=== PATIENT | female | born 1940 | race Caucasian/White ===

== ENCOUNTER 2018-10-07 19:18 | Inpatient (IN) | payer MEDICARE, OTHER ==
--- NOTE | 2018-10-07 19:29 | ERPHSYRPT ---
- History of Present Illness Time Seen by Provider: 10/07/18 19:29 Historian: patient, family Exam Limitations: no limitations Physician History: 78 y/o obese white female presents with 3 day h/o mild distension and mild right lower quad abd pain. no vomiting or diarrhea. pt has constipation issues and was supposed to see dr. vazquez(general surgery) to schedule a colonoscopy but pt wasnt feeling well and missed the appt. pt has had an appendectomy in the past. pt is wheelchair bound Timing/Duration: day(s) (3), constant Quality: fullness, pressure Abdominal Pain Onset Location: generalized abdomen Pain Radiation: no radiation Severity of Pain-Max: mild Severity of Pain-Current: mild Modifying Factors: Improves With: nothing Associated Symptoms: other (constipqtion) Previous symptoms: same symptoms as today Allergies/Adverse Reactions: No Known Drug Allergies Allergy (Unverified 12/07/14 12:05) Home Medications: Allopurinol 100 mg [Zyloprim 100 mg] 100 mg PO DAILY 12/07/14 [History] Aspirin 81 mg PO DAILY 12/07/14 [History] Canagliflozin [Invokana] 300 mg PO DAILY 12/07/14 [History] Diclofenac Sodium Gel [Voltaren GEL] 100 gm TP DAILY 12/07/14 [History] Ergocalciferol (Vitamin D2) [Vitamin D2] 0 unit PO DAILY 12/07/14 [History] Fenofibrate Nanocrystallized [Fenofibrate] 145 mg PO DAILY 12/07/14 [History] Levothyroxine Sodium 25 Mcg [Synthroid 25 Mcg] 25 mcg PO DAILY 12/07/14 [ History] Losartan Potassium [Cozaar] 50 mg PO QPM 12/07/14 [History] Lovastatin 40 mg PO DAILY 12/07/14 [History] Metoprolol Succinate 25 mg PO BID 12/07/14 [History] Nifedipine [Adalat cc] 60 mg PO QPM 12/07/14 [History] Omeprazole 20 MG [Prilosec 20 mg] 20 mg PO DAILY 12/07/14 [History] Potassium Chloride 10 Meq Tab* [Klor Con 10 MEQ] 20 meq PO DAILY 12/07/14 [ History] Venlafaxine HCl 37.5 mg [Effexor 37.5 mg] 37.5 mg PO DAILY 12/07/14 [ History] - Review of Systems Constitutional: No Symptoms Eyes: No Symptoms Ears, Nose, & Throat: No Symptoms Respiratory: No Symptoms Cardiac: No Symptoms Abdominal/Gastrointestinal: Abdominal Pain, Constipation Genitourinary Symptoms: No Symptoms Musculoskeletal: No Symptoms Skin: No Symptoms Neurological: No Symptoms Psychological: No Symptoms Endocrine: No Symptoms Hematologic/Lymphatic: No Symptoms Immunological/Allergic: No Symptoms All Other Systems: Reviewed and Negative - Past Medical History Neurological History: No Pertinent History ENT History: No Pertinent History Cardiac History: No Pertinent History Respiratory History: No Pertinent History Endocrine Medical History: No Pertinent History Musculoskeletal History: No Pertinent History GI Medical History: No Pertinent History History: No Pertinent History Psycho-Social History: No Pertinent History Female Reproductive Disorders: No Pertinent History - Past Surgical History Neuro Surgical History: No Pertinent History Cardiac: No Pertinent History Respiratory: No Pertinent History Gastrointestinal: No Pertinent History Genitourinary: No Pertinent History Musculoskeletal: No Pertinent History Female Surgical History: No Pertinent History - Nursing Vital Signs Nursing Vital Signs: Initial Vital Signs Pulse Rate 99 H 10/07/18 20:42 Respiratory Rate 22 10/07/18 20:42 O2 Sat by Pulse Oximetry 96 10/07/18 20:42 Pain Scale Pain Intensity 0 - Physical Exam General Appearance: mild distress, alert, anxiety Eye Exam: PERRL/EOMI, eyes nml inspection Ears, Nose, Throat Exam: normal ENT inspection, moist mucous membranes Neck Exam: normal inspection, non-tender, supple, full range of motion Respiratory Exam: normal breath sounds, airway intact, wheezing, No chest tenderness, No respiratory distress Cardiovascular Exam: regular rate/rhythm, normal heart sounds, normal peripheral pulses Gastrointestinal/Abdomen Exam: soft, normal bowel sounds, tenderness, distention (mild), No guarding, No rebound Pelvic Exam: not done Rectal Exam: not done Back Exam: normal inspection, normal range of motion, No CVA tenderness, No vertebral tenderness Extremity Exam: normal inspection, normal range of motion, pelvis stable Neurologic Exam: alert, oriented x 3, cooperative, chair springer II-XII nml as tested, normal mood/affect Skin Exam: normal color, warm, dry Lymphatic Exam: adenopathy SpO2 Interpretation: normal O2 Delivery: Room Air - Course Nursing assessment & vital signs reviewed: Yes Ordered Tests: Active Orders 24 hr Category Date Time Status IV Insertion STAT Care 10/07/18 19:55 Active ABDOMEN AND PELVIS W/0 CONTRAS [CT] Stat Exams 10/07/18 20:23 Taken CHEST 1 VIEW (PORTABLE) Stat Exams 10/07/18 20:37 Taken AMYLASE Stat Lab 10/07/18 20:15 Completed CBC W DIFF Stat Lab 10/07/18 20:15 Completed CMP Stat Lab 10/07/18 20:15 Completed CULTURE,URINE Stat Lab 10/07/18 21:33 Received LIPASE Stat Lab 10/07/18 20:15 Completed Lactic Acid Stat Lab 10/07/18 20:20 Completed Lactic Acid Stat Lab 10/07/18 22:24 Ordered UA W/RFX UR CULTURE Stat Lab 10/07/18 21:33 Completed Peak Expiratory Flow Rate ONCE RT 10/07/18 20:39 Active Respiratory Therapy Assessment DAILY RT 10/07/18 20:39 Active Transfer Order Routine Transfer 10/07/18 Ordered Medication Summary Generic Name Dose Route Start Last Admin Trade Name Freq PRN Reason Stop Dose Admin Sodium Chloride 1,000 mls @ 999 mls/hr 10/07/18 21:52 10/07/18 22:07 Sodium Chloride 0.9% 1000 Ml IV 10/07/18 22:52 999 mls/hr .Q1H1M STA Administration Discontinued Medications Generic Name Dose Route Start Last Admin Trade Name Freq PRN Reason Stop Dose Admin Albuterol Sulfate Confirm 10/07/18 20:36 Proventil 2.5 Mg/3 Ml Neb Administered 10/07/18 20:37 Dose 2.5 mg IH .STK-MED ONE Albuterol Sulfate 2.5 mg 10/07/18 20:38 10/07/18 20:40 Proventil 2.5 Mg/3 Ml Neb IH 10/07/18 20:39 2.5 mg STAT ONE Administration Ceftriaxone Sodium/Dextrose 1 g in 50 mls @ 100 mls/hr 10/07/18 21:52 22:07 Rocephin 1 Gm-D5w 50 Ml Bag IV 10/07/18 22:21 100 mls/hr STAT STA 100 mls/hr Administration Sodium Chloride Confirm 10/07/18 21:59 Sodium Chloride 0.9% 1000 Ml Administered 10/07/18 22:00 Dose 1,000 mls @ ud .ROUTE .STK-MED ONE Ceftriaxone Sodium/Dextrose Confirm 10/07/18 21:59 Rocephin 1 Gm-D5w 50 Ml Bag Administered 10/07/18 22:00 Dose 1 g in 50 mls @ ud IV .STK-MED ONE Lab/Rad Data: Laboratory Result Diagrams 10/07/18 20:15 10/07/18 20:15 Laboratory Results 10/07/18 10/07/18 10/07/18 Range/Units 21:33 20:20 20:15 WBC (4.0-10.5) K/mm3 RBC (4.1-5.4) M/mm3 Hgb (12.0-16.0) gm/dl Hct (35-47) % MCV (78-100) fl MCH (26-32) pg MCHC (32-36) g/dl RDW (11.5-14.0) % Plt Count (150-450) K/mm3 MPV (6-9.5) fl Gran % (36.0-66.0) % Eos # (Auto) (0-0.5) Absolute Lymphs (auto) (1.0-4.6) Absolute Monos (auto) (0.0-1.3) Lymphocytes % (24.0-44.0) % Monocytes % (0.0-12.0) % Eosinophils % (0.00-5.0) % Basophils % (0.0-0.4) % Absolute Granulocytes (1.4-6.9) Basophils # (0-0.4) Sodium 134 L (137-145) mmol/L Potassium 4.7 (3.5-5.1) mmol/L Chloride 97 L (98-107) mmol/L Carbon Dioxide 25 (22-30) mmol/L Anion Gap 16.4 H (5-15) MEQ/L BUN 55 H (7-17) mg/dL Creatinine 2.92 H (0.52-1.04) mg/dL Estimated GFR 16.6 ML/MIN Glucose 107 H (74-106) mg/dL Lactic Acid 2.0 (0.4-2.0) Calcium 9.4 (8.4-10.2) mg/dL Total Bilirubin 1.30 (0.2-1.3) mg/dL AST 67 H (14-36) U/L ALT 39 H (0-35) U/L Alkaline Phosphatase 46 (38-126) U/L Serum Total Protein 7.4 (6.3-8.2) g/dL Albumin 4.0 (3.5-5.0) g/dL Amylase 85 (30-110) U/L Lipase 379 H (23-300) U/L Urine Color ANNELISE (YELLOW) Urine Appearance CLOUDY (CLEAR) Urine pH 5.0 (5-6) Ur Specific [place] 1.020 (1.005-1.025) Urine Protein 30 (Negative) Urine Ketones TRACE (NEGATIVE) Urine Blood NEGATIVE (0-5) Denis/ul Urine Nitrite NEGATIVE (NEGATIVE) Urine Bilirubin SMALL (NEGATIVE) Urine Urobilinogen 4 (0-1) mg/dL Ur Leukocyte Esterase MODERATE (NEGATIVE) Urine WBC (Auto) >100 (0-5) /HPF Urine RBC (Auto) 26-50 (0-2) /HPF U Hyaline Cast (Auto) 11-25 (0-2) /LPF U Epithel Cells (Auto) MODERATE (FEW) /HPF Urine Bacteria (Auto) NONE (NEGATIVE) /HPF Urine Mucus (Auto) MANY (NEGATIVE) /HPF Urine Culture Reflexed YES (NO) Urine Glucose NEGATIVE (NEGATIVE) mg/dL 10/07/18 Range/Units 20:15 WBC 20.9 H (4.0-10.5) K/mm3 RBC 3.81 L (4.1-5.4) M/mm3 Hgb 11.3 L (12.0-16.0) gm/dl Hct 34.4 L (35-47) % MCV 90.3 (78-100) fl MCH 29.6 (26-32) pg MCHC 32.8 (32-36) g/dl RDW 14.4 H (11.5-14.0) % Plt Count 194 (150-450) K/mm3 MPV 11.7 H (6-9.5) fl Gran % 87.9 H (36.0-66.0) % Eos # (Auto) 0.04 (0-0.5) Absolute Lymphs (auto) 1.10 (1.0-4.6) Absolute Monos (auto) 1.33 H (0.0-1.3) Lymphocytes % 5.3 L (24.0-44.0) % Monocytes % 6.4 (0.0-12.0) % Eosinophils % 0.2 (0.00-5.0) % Basophils % 0.2 (0.0-0.4) % Absolute Granulocytes 18.36 H (1.4-6.9) Basophils # 0.04 (0-0.4) Sodium (137-145) mmol/L Potassium (3.5-5.1) mmol/L Chloride (98-107) mmol/L Carbon Dioxide (22-30) mmol/L Anion Gap (5-15) MEQ/L BUN (7-17) mg/dL Creatinine (0.52-1.04) mg/dL Estimated GFR ML/MIN Glucose (74-106) mg/dL Lactic Acid (0.4-2.0) Calcium (8.4-10.2) mg/dL Total Bilirubin (0.2-1.3) mg/dL AST (14-36) U/L ALT (0-35) U/L Alkaline Phosphatase (38-126) U/L Serum Total Protein (6.3-8.2) g/dL Albumin (3.5-5.0) g/dL Amylase (30-110) U/L Lipase (23-300) U/L Urine Color (YELLOW) Urine Appearance (CLEAR) Urine pH (5-6) Ur Specific [place] (1.005-1.025) Urine Protein (Negative) Urine Ketones (NEGATIVE) Urine Blood (0-5) Denis/ul Urine Nitrite (NEGATIVE) Urine Bilirubin (NEGATIVE) Urine Urobilinogen (0-1) mg/dL Ur Leukocyte Esterase (NEGATIVE) Urine WBC (Auto) (0-5) /HPF Urine RBC (Auto) (0-2) /HPF U Hyaline Cast (Auto) (0-2) /LPF U Epithel Cells (Auto) (FEW) /HPF Urine Bacteria (Auto) (NEGATIVE) /HPF Urine Mucus (Auto) (NEGATIVE) /HPF Urine Culture Reflexed (NO) Urine Glucose (NEGATIVE) mg/dL - Progress Progress: improved Progress Note: 10/07/18 22:[address] martinez. i reviewed pt hx, condition, labs and ct scan results with her. she accepts pt for observation Counseled pt/family regarding: lab results, diagnosis, need for follow-up, rad results - Departure Departure Disposition: Observation Clinical Impression: Acute cholecystitis, UTI (urinary tract infection) Condition: Stable Critical Care Time: No Referrals: SABRINA MARTINEZ [Primary Care Provider] -
[2018-10-07 20:25] LABS: BASOPHIL % 0.2 % (0.0-0.4); Basophil (Absolute #) 0.04 (0-0.4); Eosinophil % 0.2 % (0.00-5.0); Eosinophil (Absolute #) 0.04 (0-0.5); Granulocyte Absolute (ANC) 18.36 (1.4-6.9); Granulocytes % 87.9 % (36.0-66.0); Hematocrit 34.4 % (35-47); Hemoglobin 11.3 gm/dl (12.0-16.0); Lymphocytes % 5.3 % (24.0-44.0); Mean Cell Volume 90.3 fl (78-100); Mean Corpuscular Hgb Concent. 32.8 g/dl (32-36); Mean Platelet Volume 11.7 fl (6-9.5); Monocyte (Absolute #) 1.33 (0.0-1.3); Monocytes % 6.4 % (0.0-12.0); Platelet Count 194 K/mm3 (150-450); Red Blood Count 3.81 M/mm3 (4.1-5.4); Red Cell Distribution Width 14.4 % (11.5-14.0); White Blood Count 20.9 K/mm3 (4.0-10.5)
[2018-10-07 20:29] LABS: Mean Corpuscular Hemoglobin 29.6 pg (26-32)
[2018-10-07 20:30] LABS: ANION GAP 16.4 MEQ/L (5-15); BILIRUBIN,TOTAL 1.3 mg/dL (0.2-1.3); Calcium 9.4 mg/dL (8.4-10.2); Creatinine 1 2.92 mg/dL (0.52-1.04); Potassium 4.7 mmol/L (3.5-5.1); Total Protein 7.4 g/dL (6.3-8.2)
[2018-10-07] MEDS ORDERED: PROVENTIL 2.5 MG/3 ML NEB IH ONE ×2 (20:36→20:38)
[2018-10-07 21:41] LABS: Appearance CLOUDY (CLEAR); Bilirubin SMALL (NEGATIVE); Blood NEGATIVE Ery/ul (0-5); Epithelial Cells MODERATE /HPF (FEW); Glucose NEGATIVE (NEGATIVE); Ketones TRACE (NEGATIVE); Leukocyte Esterase MODERATE (NEGATIVE); Mucus MANY /HPF (NEGATIVE); Nitrite NEGATIVE (NEGATIVE); Protein,Urine Dip 30 (Negative); RBC 26-50 /HPF (0-2); Urobilinogen 4 mg/dL (0-1); WBC >100 /HPF (0-5)
[2018-10-07] MEDS ORDERED: ROCEPHIN 1 Gm-D5w 50 ml Bag** 1 G/50 ML IVPB IV STA (21:52)
[2018-10-07] MEDS ORDERED: Sodium Chloride 0.9% 1000 ML 1,000 ML IV STA (21:52)
[2018-10-07] MEDS ORDERED: ROCEPHIN 1 Gm-D5w 50 ml Bag** 1 G/50 ML IVPB IV ONE (21:59)
[2018-10-07] MEDS ORDERED: Sodium Chloride 0.9% 1000 ML 1,000 ML ONE (21:59)
[2018-10-08] MEDS ORDERED: TYLENOL 325 MG PO PRN (00:23)
[2018-10-08] MEDS ORDERED: DILAUDID 2 MG INJECTION IV PRN (00:23)
[2018-10-08] MEDS ORDERED: Zofran 4 MG/2 ML VIAL IV PRN (00:23)
[2018-10-08] MEDS: Sodium Chloride 0.9% 1000 ML 1,000 ML IV SCH (00:43)
[2018-10-08 06:09] LABS: BASOPHIL % 0.1 % (0.0-0.4); Basophil (Absolute #) 0.02 (0-0.4); Eosinophil % 0.2 % (0.00-5.0); Eosinophil (Absolute #) 0.03 (0-0.5); Hematocrit 32.7 % (35-47); Hemoglobin 10.9 gm/dl (12.0-16.0); Lymphocyte (Absolute #) 0.84 (1.0-4.6); Lymphocytes % 5.6 % (24.0-44.0); Mean Cell Volume 90.6 fl (78-100); Mean Corpuscular Hgb Concent. 33.3 g/dl (32-36); Mean Platelet Volume 12.2 fl (6-9.5); Monocyte (Absolute #) 1.07 (0.0-1.3); Monocytes % 7.1 % (0.0-12.0); Platelet Count 154 K/mm3 (150-450); Red Blood Count 3.61 M/mm3 (4.1-5.4); Red Cell Distribution Width 14.4 % (11.5-14.0); White Blood Count 15.1 K/mm3 (4.0-10.5)
[2018-10-08 06:15] LABS: Mean Corpuscular Hemoglobin 30.1 pg (26-32)
[2018-10-08 06:22] LABS: ALBUMIN 3.5 g/dL (3.5-5.0); ANION GAP 16.5 MEQ/L (5-15); BILIRUBIN,TOTAL 0.8 mg/dL (0.2-1.3); Creatinine 1 2.57 mg/dL (0.52-1.04); Potassium 3.8 mmol/L (3.5-5.1); Total Protein 6.5 g/dL (6.3-8.2)
--- NOTE | 2018-10-08 08:52 | PCM.HP ---
History of Present Illness - Chief Complaint Chief Complaint: Cholecystitis, UTI History of Present Illness: is a 78 year old female pt of mine from [facility] with DM II, HTN, and hypothyroidism who was admitted through ER last night with acute cholecystitis and UTI. She started having pain at 5 a.m. Thursday, and electrical type pain through her R shoulder and under R rib cage, 01/20. Had nausea, no vomiting. No diarrhea. Chills at home; tmax 101.7 here. Her WBC count was 20,000 in ER. UA with >100 WBC. She was started on IV rocephin. This morning she is feeling better. Tolerating CLD. - Review of Systems Constitutional: Fever Cardiac: Other (SOB in ER - resolved with neb tx) Abdominal/Gastrointestinal: Abdominal Pain, Nausea, Other (last BM 1 week ago, she thinks) Neurological: Dizziness Psychological: No Anxiety, No Depression, No Suicidal Ideations All Other Systems: Reviewed and Negative Medications & Allergies Home Medications: Home Medication List Allopurinol 100 mg [Zyloprim 100 mg] 100 mg PO DAILY 12/07/14 [History Confirmed 10/08/18] Aspirin 81 mg PO HS 12/07/14 [History Confirmed 10/08/18] Ergocalciferol (Vitamin D2) [Vitamin D2] 50,000 unit PO UD 12/07/14 [History Confirmed 10/08/18] Fenofibrate Nanocrystallized [Fenofibrate] 0.5 tab PO DAILY 12/07/14 [History Confirmed 10/08/18] Levothyroxine Sodium 25 Mcg [Synthroid 25 Mcg] 25 mcg PO DAILY 12/07/14 [ History Confirmed 10/08/18] Losartan Potassium [Cozaar] 50 mg PO QPM 12/07/14 [History Confirmed 10/08/18] Lovastatin 40 mg PO DAILY 12/07/14 [History Confirmed 10/08/18] Metoprolol Succinate 25 mg PO BID 12/07/14 [History Confirmed 10/08/18] Nifedipine [Adalat cc] 60 mg PO QPM 12/07/14 [History Confirmed 10/08/18] Omeprazole 20 MG [Prilosec 20 mg] 20 mg PO DAILY 12/07/14 [History Confirmed ] Potassium Chloride 10 Meq Tab* [Klor Con 10 MEQ] 20 meq PO DAILY 12/07/14 [ History Confirmed 10/08/18] Venlafaxine HCl 37.5 mg [Effexor 37.5 mg] 37.5 mg PO DAILY 12/07/14 [ History Confirmed 10/08/18] Biotin/Keratin [Biotin Plus Keratin Tablet] 1 each PO DAILY 10/08/18 [History Confirmed 10/08/18] Glycopyrrolate 1 mg PO BID 10/08/18 [History Confirmed 10/08/18] Liraglutide [Victoza 2-Bernabe] 1.8 mg SQ DAILY 10/08/18 [History Confirmed 10/08/18 ] Paricalcitol 1 tab PO UD 10/08/18 [History Confirmed 10/08/18] Tramadol HCl 100 mg PO Q8H PRN PRN 10/08/18 [History Confirmed 10/08/18] Allergies/Adverse Reactions: Allergies Allergy/AdvReac Type Severity Reaction Status Date / Time No Known Drug Allergies Allergy Unverified 12/07/14 12:05 - Past Medical History Past Medical History: Yes Neurological History: No Pertinent History ENT History: No Pertinent History Cardiac History: Hypertension Respiratory History: No Pertinent History Endocrine Medical History: Hypothyroidism Musculoskelatal History: No Pertinent History GI Medical History: GERD History: No Pertinent History Pyscho-Social History: Anxiety, Depression Reproductive Disorders: No Pertinent History - Female History Are you now?: No - Past Surgical History Past Surgical History: Yes Neuro Surgical History: No Pertinent History Cardiac History: No Pertinent History Respiratory Surgery: No Pertinent History GI Surgical History: No Pertinent History Genitourinary Surgical Hx: No Pertinent History Musculskeletal Surgical Hx: No Pertinent History, Joint Replacement Female Surgical History: No Pertinent History Other Surgical History: hip/knee replacement. rotator cuff repair. - Social History Smoking Status: Former smoker Exposure to second hand smoke: No Alcohol: Occasionally Drug Use: none - Physical Exam Vital Signs: Vital Signs - 24 hr Temp Pulse Resp BP Pulse Ox 10/08/18 07:35 98.9 F 102 H 18 116/80 93 L 10/08/18 04:00 98.3 F 93 H 18 136/66 92 L 10/08/18 01:12 101.7 F 109 H 22 126/56 94 L 10/07/18 23:56 100.3 F 107 H 18 102/50 94 L 10/07/18 23:27 107 H 18 102/50 94 L 10/07/18 21:50 102 H 18 100/73 90 L 10/07/18 21:32 104 H 24 100/73 92 L 10/07/18 20:42 99 H 22 96 General Appearance: no apparent distress, alert Neurologic Exam: oriented x 3, cooperative Eye Exam: eyes nml inspection Ears, Nose, Throat Exam: moist mucous membranes Respiratory Exam: lungs clear, diminished breath sounds, No crackles/rales, No rhonchi, No wheezing Cardiovascular Exam: regular rate/rhythm, normal heart sounds, No murmur Gastrointestinal/Abdomen Exam: soft, tenderness (epigastrum and RUQ), No normal bowel sounds (hypoactive), No distention, No mass, No guarding, No rebound Back Exam: normal inspection, CVA tenderness (on R), No rash Extremity Exam: normal inspection, swelling (trace pretibial edema bilat) Skin Exam: normal color, warm, dry, No rash Results - Labs Lab/Micro Results: Accuchecks Date 10/08/18 Time 07:00 Accucheck Value: 96 Lab Results-Last 24 Hours 10/07/18 10/07/18 10/07/18 Range/Units 20:15 20:15 20:20 WBC 20.9 H (4.0-10.5) K/mm3 RBC 3.81 L (4.1-5.4) M/mm3 Hgb 11.3 L (12.0-16.0) gm/dl Hct 34.4 L (35-47) % MCV 90.3 (78-100) fl MCH 29.6 (26-32) pg MCHC 32.8 (32-36) g/dl RDW 14.4 H (11.5-14.0) % Plt Count 194 (150-450) K/mm3 MPV 11.7 H (6-9.5) fl Gran % 87.9 H (36.0-66.0) % Eos # (Auto) 0.04 (0-0.5) Absolute Lymphs (auto) 1.10 (1.0-4.6) Absolute Monos (auto) 1.33 H (0.0-1.3) Lymphocytes % 5.3 L (24.0-44.0) % Monocytes % 6.4 (0.0-12.0) % Eosinophils % 0.2 (0.00-5.0) % Basophils % 0.2 (0.0-0.4) % Absolute Granulocytes 18.36 H (1.4-6.9) Basophils # 0.04 (0-0.4) Sodium 134 L (137-145) mmol/L Potassium 4.7 (3.5-5.1) mmol/L Chloride 97 L (98-107) mmol/L Carbon Dioxide 25 (22-30) mmol/L Anion Gap 16.4 H (5-15) MEQ/L BUN 55 H (7-17) mg/dL Creatinine 2.92 H (0.52-1.04) mg/dL Estimated GFR 16.6 ML/MIN Glucose 107 H (74-106) mg/dL Lactic Acid 2.0 (0.4-2.0) Calcium 9.4 (8.4-10.2) mg/dL Total Bilirubin 1.30 (0.2-1.3) mg/dL AST 67 H (14-36) U/L ALT 39 H (0-35) U/L Alkaline Phosphatase 46 (38-126) U/L Serum Total Protein 7.4 (6.3-8.2) g/dL Albumin 4.0 (3.5-5.0) g/dL Amylase 85 (30-110) U/L Lipase 379 H (23-300) U/L Urine Color (YELLOW) Urine Appearance (CLEAR) Urine pH (5-6) Ur Specific [place] (1.005-1.025) Urine Protein (Negative) Urine Ketones (NEGATIVE) Urine Blood (0-5) Denis/ul Urine Nitrite (NEGATIVE) Urine Bilirubin (NEGATIVE) Urine Urobilinogen (0-1) mg/dL Ur Leukocyte Esterase (NEGATIVE) Urine WBC (Auto) (0-5) /HPF Urine RBC (Auto) (0-2) /HPF U Hyaline Cast (Auto) (0-2) /LPF U Epithel Cells (Auto) (FEW) /HPF Urine Bacteria (Auto) (NEGATIVE) /HPF Urine Mucus (Auto) (NEGATIVE) /HPF Urine Culture Reflexed (NO) Urine Glucose (NEGATIVE) mg/dL Slides for Path Review YES 0610/08/18 10/08/18 Range/Units 21:33 05:25 05:25 WBC 15.1 H (4.0-10.5) K/mm3 RBC 3.61 L (4.1-5.4) M/mm3 Hgb 10.9 L (12.0-16.0) gm/dl Hct 32.7 L (35-47) % MCV 90.6 (78-100) fl MCH 30.1 (26-32) pg MCHC 33.3 (32-36) g/dl RDW 14.4 H (11.5-14.0) % Plt Count 154 (150-450) K/mm3 MPV 12.2 H (6-9.5) fl Gran % 87.0 H (36.0-66.0) % Eos # (Auto) 0.03 (0-0.5) Absolute Lymphs (auto) 0.84 L (1.0-4.6) Absolute Monos (auto) 1.07 (0.0-1.3) Lymphocytes % 5.6 L (24.0-44.0) % Monocytes % 7.1 (0.0-12.0) % Eosinophils % 0.2 (0.00-5.0) % Basophils % 0.1 (0.0-0.4) % Absolute Granulocytes 13.10 H (1.4-6.9) Basophils # 0.02 (0-0.4) Sodium 136 L (137-145) mmol/L Potassium 3.8 (3.5-5.1) mmol/L Chloride 100 (98-107) mmol/L Carbon Dioxide 23 (22-30) mmol/L Anion Gap 16.5 H (5-15) MEQ/L BUN 51 H (7-17) mg/dL Creatinine 2.57 H (0.52-1.04) mg/dL Estimated GFR 19.3 ML/MIN Glucose 96 (74-106) mg/dL Lactic Acid (0.4-2.0) Calcium 9.0 (8.4-10.2) mg/dL Total Bilirubin 0.80 (0.2-1.3) mg/dL AST 41 H (14-36) U/L ALT 33 (0-35) U/L Alkaline Phosphatase 51 (38-126) U/L Serum Total Protein 6.5 (6.3-8.2) g/dL Albumin 3.5 (3.5-5.0) g/dL Amylase (30-110) U/L Lipase (23-300) U/L Urine Color ANNELISE (YELLOW) Urine Appearance CLOUDY (CLEAR) Urine pH 5.0 (5-6) Ur Specific [place] 1.020 (1.005-1.025) Urine Protein 30 (Negative) Urine Ketones TRACE (NEGATIVE) Urine Blood NEGATIVE (0-5) Denis/ul Urine Nitrite NEGATIVE (NEGATIVE) Urine Bilirubin SMALL (NEGATIVE) Urine Urobilinogen 4 (0-1) mg/dL Ur Leukocyte Esterase MODERATE (NEGATIVE) Urine WBC (Auto) >100 (0-5) /HPF Urine RBC (Auto) 26-50 (0-2) /HPF U Hyaline Cast (Auto) 11-25 (0-2) /LPF U Epithel Cells (Auto) MODERATE (FEW) /HPF Urine Bacteria (Auto) NONE (NEGATIVE) /HPF Urine Mucus (Auto) MANY (NEGATIVE) /HPF Urine Culture Reflexed YES (NO) Urine Glucose NEGATIVE (NEGATIVE) mg/dL Slides for Path Review Accuchecks Date 10/08/18 Time 07:00 Accucheck Value: 96 - Radiology Impressions Radiology Exams & Impressions: Radiology Procedures Category Date Time Status ABDOMEN AND PELVIS W/0 CONTRAS [CT] Stat Exams 10/07/18 20:23 Taken CHEST 1 VIEW (PORTABLE) Stat Exams 10/07/18 20:37 Taken Assessment/Plan (1) Acute cholecystitis Current Visit: Yes Status: Acute Assessment & Plan: rocephin day #2, WBC improved. Will need to see resolution of fever for 24h and WBC near normal range before discharge. Likely here several days. Code(s): K81.0 - ACUTE CHOLECYSTITIS (2) UTI (urinary tract infection) Current Visit: Yes Status: Acute Qualifiers: Urinary tract infection type: acute cystitis Assessment & Plan: on IV rocephin day #2 Code(s): N39.0 - URINARY TRACT INFECTION, SITE NOT SPECIFIED (3) Renal insufficiency Current Visit: Yes Status: Acute Assessment & Plan: acute on chronic. Will give several boluses today in an effort to improve renal function.
[2018-10-08] MEDS ORDERED: NovoLOG Insulin SQ PRN (08:54)
--- NOTE | 2018-10-08 09:27 | XRAY ---
Indication: Right lower quadrant pain. Constipation. Multiple contiguous axial images obtained through the abdomen and pelvis without contrast as ordered. Comparison: None Lung bases demonstrates minimal fibrosis/scarring. Heart is not enlarged. Right hip bipolar prosthesis produces beam artifact limiting images through this level. Noncontrasted stomach and bowel loops appear nonobstructed. Previous appendectomy. Gallbladder is markedly distended up to 14 cm with a 8 mm stone near the neck of the gallbladder. Also abnormal gallbladder wall thickening and pericholecystic stranding favoring acute cholecystitis. No free fluid/air. Calcified hepatic/splenic granulomas. Remaining liver, pancreas, spleen, adrenal glands, kidneys, ureters, bladder, and uterus appear unremarkable for noncontrast exam. Mild aortoiliac calcifications without AAA. Impression: 1. Abnormally distended gallbladder with subcentimeter stone in the neck. Also abnormal wall thickening and stranding favoring acute cholecystitis. 2. Multilevel degenerative spondylosis, scattered arteriosclerotic disease, and evidence for old granulomatous disease. 3. Remaining CT abdomen/pelvis without contrast exam is negative. CT DI 22.81
--- NOTE | 2018-10-08 09:29 | XRAY ---
Indication: Wheezing. Comparison: None Portable apical lordotic chest demonstrates normal heart and lungs. Bony thorax intact with mild degenerative changes.
[2018-10-08] MEDS ORDERED: NON-FORMULARY ITEM (Lovastatin [Lovastatin] 40 MG) PO SCH (10:00)
[2018-10-08] MEDS ORDERED: MEDICATION INTERVENTION PO SCH (10:00)
[2018-10-08] MEDS ORDERED: NON-FORMULARY ITEM (Omeprazole 20 Mg [Prilosec 20 Mg] 20 MG) PO SCH (10:00)
[2018-10-08] MEDS ORDERED: GLYCOPYRROLATE 1 MG PO SCH (10:00)
[2018-10-08] MEDS: Protonix 40MG Tablet PO SCH (10:25)
[2018-10-08] MEDS: EFFEXOR 37.5 MG PO SCH (10:25)
[2018-10-08] MEDS: ZYLOPRIM 100 MG PO SCH (10:25)
[2018-10-08] MEDS: ENOXAPARIN SODIUM SQ SCH (10:26)
[2018-10-08] MEDS: SYNTHROID 25 MCG PO SCH (10:26)
[2018-10-08] MEDS: ZOCOR 20MG PO SCH (10:26)
[2018-10-08] MEDS: Klor Con 10 MEQ PO SCH (10:26)
[2018-10-08] MEDS: Toprol-Xl 25MG Tablets PO SCH ×2 (10:35→21:05)
[2018-10-08] MEDS: ULTRAM 50 MG PO PRN (13:28)
[2018-10-08] MEDS: ECOTRIN 81 MG PO SCH (21:05)
[2018-10-08] MEDS: Cozaar 50 MG PO SCH (21:05)
[2018-10-08] MEDS: Adalat CC 30 MG TABLET PO SCH (21:06)
[2018-10-08] MEDS: ROCEPHIN 1 Gm-D5w 50 ml Bag** 1 G/50 ML IVPB IV SCH (21:06)
[2018-10-08] MEDS ORDERED: NIFEDIPINE 60 MG PO SCH (22:00)
[2018-10-09] MEDS: Sodium Chloride 0.9% 1000 ML 1,000 ML IV SCH (07:40)
[2018-10-09] MEDS: Klor Con 10 MEQ PO SCH (09:07)
[2018-10-09] MEDS: SYNTHROID 25 MCG PO SCH (09:07)
[2018-10-09] MEDS: ZOCOR 20MG PO SCH (09:07)
[2018-10-09] MEDS: EFFEXOR 37.5 MG PO SCH (09:07)
[2018-10-09] MEDS: ZYLOPRIM 100 MG PO SCH (09:08)
[2018-10-09] MEDS: Toprol-Xl 25MG Tablets PO SCH ×2 (09:08→21:31)
[2018-10-09] MEDS: ENOXAPARIN SODIUM SQ SCH (09:08)
[2018-10-09] MEDS: Protonix 40MG Tablet PO SCH (09:08)
--- NOTE | 2018-10-09 13:41 | PCM.NOTE ---
Date and Time: 10/09/18 7987 Subjective Assessment: Her RUQ pain is now 3/10 at rest; worse when she gets up. Has been up to bathroom without issues. Erasto bland diet but poor appetite. Tmax last night 100.2. Feels like she needs a nebulizer tx when she lays down. - Review of Systems Constitutional: Other (temp to 100.2) Abdominal/Gastrointestinal: Abdominal Pain, No Vomiting Objective Exam General Appearance: mild distress (when sitting up in bed), alert Neurologic Exam: oriented x 3, cooperative Skin Exam: normal color, warm, dry, No rash Neck Exam: normal inspection Respiratory Exam: normal breath sounds, lungs clear, wheezing (scattered), No crackles/rales, No rhonchi Cardiovascular Exam: regular rate/rhythm, normal heart sounds, No murmur Gastrointestinal/Abdomen Exam: soft, normal bowel sounds, tenderness (RUQ, mild) , No distention, No mass, No guarding, No rebound Extremity Exam: normal inspection, No pedal edema, No swelling OBJECTIVE DATA Vital Signs: Vital Signs - 24 hr Temp Pulse Resp BP Pulse Ox 10/09/18 11:55 98.6 F 88 18 91/54 94 L 10/09/18 07:39 99.6 F 101 H 17 105/56 93 L 10/09/18 03:54 99.6 F 101 H 19 110/73 92 L 10/08/18 23:46 100.2 F 67 19 96/49 95 10/08/18 20:00 98.7 F 98 H 18 115/70 93 L 10/08/18 16:00 99.0 F 92 H 18 111/69 92 L Pain Assessment - Last Documented Pain Intensity 0 Pain Scale Used 0-10 Pain Scale Intake and Output: Intake & Output 10/07/18 10/08/18 10/09/18 10/10/18 11:59 11:59 11:59 11:59 Intake Total 1011 2529 240 Output Total 1150 Balance 1011 1379 240 Weight 94.6 kg 94.6 kg Lab Results: Accuchecks Date 10/09/18 Date 10/09/18 Date 10/08/18 Date 10/08/18 Time 11:30 Time 07:30 Time 22:00 Time 16:30 Accucheck Value: 123 Accucheck Value: 106 Accucheck Value: 96 Accucheck Value: 114 Radiology Exams: Radiology Procedures Category Date Time Status ABDOMEN AND PELVIS W/0 CONTRAS [CT] Stat Exams 10/07/18 20:23 Completed CHEST 1 VIEW (PORTABLE) Stat Exams 10/07/18 20:37 Completed Assessment/Plan (1) Acute cholecystitis Current Visit: Yes Status: Acute Assessment & Plan: Improved, on day #3 of IV rocephin. Code(s): K81.0 - ACUTE CHOLECYSTITIS (2) UTI (urinary tract infection) Current Visit: Yes Status: Acute Qualifiers: Urinary tract infection type: acute cystitis Assessment & Plan: UCx is actually negative. Code(s): N39.0 - URINARY TRACT INFECTION, SITE NOT SPECIFIED (3) Renal insufficiency Current Visit: Yes Status: Acute Assessment & Plan: rechecking today - labs pending.
[2018-10-09 14:31] LABS: BASOPHIL % 0.2 % (0.0-0.4); Basophil (Absolute #) 0.03 (0-0.4); Eosinophil % 0.4 % (0.00-5.0); Eosinophil (Absolute #) 0.07 (0-0.5); Granulocytes % 86.1 % (36.0-66.0); Hematocrit 32.5 % (35-47); Hemoglobin 10.9 gm/dl (12.0-16.0); Lymphocyte (Absolute #) 1.07 (1.0-4.6); Lymphocytes % 5.7 % (24.0-44.0); Mean Cell Volume 89.8 fl (78-100); Mean Corpuscular Hemoglobin 30.1 pg (26-32); Mean Corpuscular Hgb Concent. 33.5 g/dl (32-36); Mean Platelet Volume 11.4 fl (6-9.5); Monocyte (Absolute #) 1.43 (0.0-1.3); Monocytes % 7.6 % (0.0-12.0); Platelet Count 233 K/mm3 (150-450); Red Blood Count 3.62 M/mm3 (4.1-5.4); Red Cell Distribution Width 14.2 % (11.5-14.0); White Blood Count 18.8 K/mm3 (4.0-10.5)
[2018-10-09 14:55] LABS: ALBUMIN 3.5 g/dL (3.5-5.0); BILIRUBIN,TOTAL 0.7 mg/dL (0.2-1.3); Creatinine 1 1.22 mg/dL (0.52-1.04); Potassium 4.2 mmol/L (3.5-5.1); Total Protein 6.7 g/dL (6.3-8.2)
[2018-10-09] MEDS: PROVENTIL 2.5 MG/3 ML NEB IH SCH (15:57)
[2018-10-09] MEDS: ROCEPHIN 1 Gm-D5w 50 ml Bag** 1 G/50 ML IVPB IV SCH (21:21)
[2018-10-09] MEDS: ECOTRIN 81 MG PO SCH (21:24)
[2018-10-09] MEDS: Adalat CC 30 MG TABLET PO SCH (21:31)
[2018-10-09] MEDS: Cozaar 50 MG PO SCH (21:31)
[2018-10-09] MEDS: Zosyn 3.375GM/100 Ml D5W 3.375 GM/100 ML IVPB IV SCH (23:49)
[2018-10-10] MEDS: PROVENTIL 2.5 MG/3 ML NEB IH SCH ×5 (04:01→19:33)
[2018-10-10] MEDS: Sodium Chloride 0.9% 1000 ML 1,000 ML IV SCH (04:54)
[2018-10-10] MEDS: Zosyn 3.375GM/100 Ml D5W 3.375 GM/100 ML IVPB IV SCH ×3 (05:18→19:07)
[2018-10-10 06:05] LABS: BASOPHIL % 0.1 % (0.0-0.4); Basophil (Absolute #) 0.01 (0-0.4); Eosinophil % 0.4 % (0.00-5.0); Eosinophil (Absolute #) 0.05 (0-0.5); Granulocyte Absolute (ANC) 12.38 (1.4-6.9); Granulocytes % 86.8 % (36.0-66.0); Hematocrit 30.7 % (35-47); Hemoglobin 10.3 gm/dl (12.0-16.0); Lymphocyte (Absolute #) 0.91 (1.0-4.6); Lymphocytes % 6.4 % (24.0-44.0); Mean Cell Volume 89.5 fl (78-100); Mean Corpuscular Hgb Concent. 33.6 g/dl (32-36); Mean Platelet Volume 11.8 fl (6-9.5); Monocytes % 6.3 % (0.0-12.0); Platelet Count 202 K/mm3 (150-450); Red Blood Count 3.43 M/mm3 (4.1-5.4); White Blood Count 14.3 K/mm3 (4.0-10.5)
[2018-10-10 06:17] LABS: ANION GAP 14.1 MEQ/L (5-15); Creatinine 1 0.98 mg/dL (0.52-1.04)
[2018-10-10] MEDS: Toprol-Xl 25MG Tablets PO SCH ×2 (10:30→21:18)
[2018-10-10] MEDS: ZOCOR 20MG PO SCH (10:30)
[2018-10-10] MEDS: ZYLOPRIM 100 MG PO SCH (10:30)
[2018-10-10] MEDS: Protonix 40MG Tablet PO SCH (10:30)
[2018-10-10] MEDS: ENOXAPARIN SODIUM SQ SCH (10:30)
[2018-10-10] MEDS: Klor Con 10 MEQ PO SCH (10:30)
[2018-10-10] MEDS: EFFEXOR 37.5 MG PO SCH (10:31)
[2018-10-10] MEDS: SYNTHROID 25 MCG PO SCH (10:31)
--- NOTE | 2018-10-10 14:44 | PCM.NOTE ---
Date and Time: 10/10/18 1439 Subjective Assessment: She is feeling better, no abd pain and mark po. She is having loose stools and diarrhea. - Review of Systems Constitutional: No Fever Abdominal/Gastrointestinal: Diarrhea, No Abdominal Pain Objective Exam General Appearance: no apparent distress, alert Neurologic Exam: oriented x 3, cooperative Skin Exam: normal color, warm, dry, No rash Ears, Nose, Throat Exam: moist mucous membranes Neck Exam: normal inspection Respiratory Exam: normal breath sounds, lungs clear, No crackles/rales, No rhonchi, No wheezing Cardiovascular Exam: regular rate/rhythm, normal heart sounds, No murmur Gastrointestinal/Abdomen Exam: soft, normal bowel sounds, No tenderness, No distention, No mass, No guarding, No rebound Extremity Exam: normal inspection, No pedal edema, No swelling OBJECTIVE DATA Vital Signs: Vital Signs - 24 hr Temp Pulse Resp BP Pulse Ox 10/10/18 13:14 94 H 18 96 10/10/18 12:35 98.9 F 99 H 16 124/66 95 10/10/18 08:35 95 H 18 97 10/10/18 07:55 99.3 F 99 H 18 118/72 94 L 10/10/18 04:18 97.9 F 100 H 22 133/72 97 10/10/18 00:42 98.8 F 93 H 20 103/56 94 L 10/09/18 21:29 86 96/51 10/09/18 19:37 98.6 F 94 H 19 102/57 93 L 10/09/18 16:00 98.8 F 93 H 24 110/56 96 10/09/18 15:59 91 H 16 91 L Pain Assessment - Last Documented Pain Intensity 0 Pain Scale Used 0-10 Pain Scale Intake and Output: Intake & Output 10/08/18 10/09/18 10/10/18 10/11/18 11:59 11:59 11:59 11:59 Intake Total 1011 2529 2157 Output Total 1150 500 Balance 1011 1379 1657 Weight 94.6 kg 94.6 kg 94.3 kg Lab Results: Accuchecks Date 10/09/18 Date 10/09/18 Date 10/09/18 Date 10/09/18 Time 11:30 Time 07:30 Time 16:30 Accucheck Value: 150 Accucheck Value: 114 Accucheck Value: 140 Accucheck Value: 124 Lab Results-Last 24 Hours 10/09/18 10/09/18 10/10/18 Range/Units 14:15 14:15 05:12 WBC 18.8 H 14.3 H (4.0-10.5) K/mm3 RBC 3.62 L 3.43 L (4.1-5.4) M/mm3 Hgb 10.9 L 10.3 L (12.0-16.0) gm/dl Hct 32.5 L 30.7 L (35-47) % MCV 89.8 89.5 (78-100) fl MCH 30.1 30.0 (26-32) pg MCHC 33.5 33.6 (32-36) g/dl RDW 14.2 H 14.0 (11.5-14.0) % Plt Count 233 D 202 (150-450) K/mm3 MPV 11.4 H 11.8 H (6-9.5) fl Gran % 86.1 H 86.8 H (36.0-66.0) % Eos # (Auto) 0.07 0.05 (0-0.5) Absolute Lymphs (auto) 1.07 0.91 L (1.0-4.6) Absolute Monos (auto) 1.43 H 0.90 (0.0-1.3) Lymphocytes % 5.7 L 6.4 L (24.0-44.0) % Monocytes % 7.6 6.3 (0.0-12.0) % Eosinophils % 0.4 0.4 (0.00-5.0) % Basophils % 0.2 0.1 (0.0-0.4) % Absolute Granulocytes 16.20 H 12.38 H (1.4-6.9) Basophils # 0.03 0.01 (0-0.4) Sodium 136 L (137-145) mmol/L Potassium 4.2 (3.5-5.1) mmol/L Chloride 102 (98-107) mmol/L Carbon Dioxide 24 (22-30) mmol/L Anion Gap 14.0 (5-15) MEQ/L BUN 38 H (7-17) mg/dL Creatinine 1.22 H (0.52-1.04) mg/dL Estimated GFR 45.5 ML/MIN Glucose 146 H (74-106) mg/dL Calcium 9.0 (8.4-10.2) mg/dL Total Bilirubin 0.70 (0.2-1.3) mg/dL AST 67 H (14-36) U/L ALT 43 H (0-35) U/L Alkaline Phosphatase 105 (38-126) U/L Serum Total Protein 6.7 (6.3-8.2) g/dL Albumin 3.5 (3.5-5.0) g/dL 10/10/18 Range/Units 05:12 WBC (4.0-10.5) K/mm3 RBC (4.1-5.4) M/mm3 Hgb (12.0-16.0) gm/dl Hct (35-47) % MCV (78-100) fl MCH (26-32) pg MCHC (32-36) g/dl RDW (11.5-14.0) % Plt Count (150-450) K/mm3 MPV (6-9.5) fl Gran % (36.0-66.0) % Eos # (Auto) (0-0.5) Absolute Lymphs (auto) (1.0-4.6) Absolute Monos (auto) (0.0-1.3) Lymphocytes % (24.0-44.0) % Monocytes % (0.0-12.0) % Eosinophils % (0.00-5.0) % Basophils % (0.0-0.4) % Absolute Granulocytes (1.4-6.9) Basophils # (0-0.4) Sodium 140 (137-145) mmol/L Potassium 4.0 (3.5-5.1) mmol/L Chloride 104 (98-107) mmol/L Carbon Dioxide 25 (22-30) mmol/L Anion Gap 14.1 (5-15) MEQ/L BUN 27 H (7-17) mg/dL Creatinine 0.98 (0.52-1.04) mg/dL Estimated GFR 58.6 ML/MIN Glucose 114 H (74-106) mg/dL Calcium 9.0 (8.4-10.2) mg/dL Total Bilirubin (0.2-1.3) mg/dL AST (14-36) U/L ALT (0-35) U/L Alkaline Phosphatase (38-126) U/L Serum Total Protein (6.3-8.2) g/dL Albumin (3.5-5.0) g/dL Assessment/Plan (1) Acute cholecystitis Current Visit: Yes Status: Acute Assessment & Plan: Improved. On day #1 of zosyn after starting on IV rocephin x 3d. Her WBC were initially 20.9, then decreased to 15.1, but on day #3 of rocephin were back up to 18.8 so zosyn was started. Her WBC are still 14.3, will recheck in a.m. If continues afebrile, mark po, and WBC are down again probably could d/c to home tomorrow on po augmentin or cipro. Code(s): K81.0 - ACUTE CHOLECYSTITIS (2) UTI (urinary tract infection) Current Visit: Yes Status: Resolved Qualifiers: Urinary tract infection type: acute cystitis Assessment & Plan: Final culture - no growth. Code(s): N39.0 - URINARY TRACT INFECTION, SITE NOT SPECIFIED (3) Renal insufficiency Current Visit: Yes Status: Resolved Assessment & Plan: Initial eGFR on admission was 16.6, but today is 58.6. I did discuss with her. She sees Dr. Douglas but I don't think necessary to consult him at this time (pt was asking about it today).
[2018-10-10 20:56] LABS: Campylobacter NEGATIVE (NEGATIVE)
[2018-10-10 20:57] LABS: Adenovirus F 40/41 NEGATIVE (NEGATIVE); Astrovirus NEGATIVE (NEGATIVE); C. Difficile Organism POSITIVE (NEGATIVE); Cyclospora cayentanensis NEGATIVE (NEGATIVE); Entamoeaba histolytica NEGATIVE (NEGATIVE); Enteroaggregative E.coli NEGATIVE (NEGATIVE); Giardia lamblia NEGATIVE (NEGATIVE); Plesiomonas shigelloides NEGATIVE (NEGATIVE); Rotavirus A NEGATIVE (NEGATIVE); Salmonella NEGATIVE (NEGATIVE); Sapovirus NEGATIVE (NEGATIVE); Shiga-like toxin prod.E.coli NEGATIVE (NEGATIVE); Vibrio NEGATIVE (NEGATIVE)
[2018-10-10] MEDS: ULTRAM 50 MG PO PRN (21:17)
[2018-10-10] MEDS: Cozaar 50 MG PO SCH (21:17)
[2018-10-10] MEDS: ECOTRIN 81 MG PO SCH (21:17)
[2018-10-10] MEDS: Adalat CC 30 MG TABLET PO SCH (21:18)
[2018-10-10 22:59] LABS: TOXIGENIC C. DIFF ORG POSITIVE (NEGATIVE)
[2018-10-10 23:00] LABS: 027 TOX PROD POSITIVE (NEGATIVE)
[2018-10-11] MEDS: FLAGYL 500 MG IVPB 500 MG/100 ML BAG IV SCH ×3 (00:08→11:34)
[2018-10-11] MEDS: Zosyn 3.375GM/100 Ml D5W 3.375 GM/100 ML IVPB IV SCH ×3 (00:56→11:00)
[2018-10-11 06:10] LABS: Hematocrit 28.1 % (35-47); Hemoglobin 9.2 gm/dl (12.0-16.0); Mean Cell Volume 90.6 fl (78-100); Mean Corpuscular Hgb Concent. 32.7 g/dl (32-36); Mean Platelet Volume 11.6 fl (6-9.5); Platelet Count 199 K/mm3 (150-450); Red Cell Distribution Width 14.2 % (11.5-14.0); White Blood Count 12.6 K/mm3 (4.0-10.5)
[2018-10-11 06:23] LABS: Mean Corpuscular Hemoglobin 29.6 pg (26-32)
[2018-10-11 06:30] LABS: ALKALINE PHOSPHATASE 100 U/L (38-126); ANION GAP 11.1 MEQ/L (5-15); BLOOD UREA NITROGEN 17 mg/dL (7-17); CHLORIDE 106 mmol/L (98-107); Calcium 8.9 mg/dL (8.4-10.2); Carbon Dioxide 26 mmol/L (22-30); Creatinine 1 0.93 mg/dL (0.52-1.04); Glucose 95 mg/dL (74-106); Potassium 3.9 mmol/L (3.5-5.1); SGOT/AST 46 U/L (14-36); SGPT/ALT 48 U/L (0-35); SODIUM 140 mmol/L (137-145)
[2018-10-11] MEDS: PROVENTIL 2.5 MG/3 ML NEB IH SCH ×2 (07:10→10:47)
--- NOTE | 2018-10-11 08:51 | PCM.DCORD ---
- Discharge Discharge Date: 10/11/18 Disposition: Home, Self-Care Condition: Good Prescriptions: New Amox Tr/Potass Clav. 875 mg [Augmentin 875-125 Tablet] 1 each PO BID # 8 tablet Metronidazole 500 mg [Flagyl 500 MG] 500 mg PO QID #28 tablet Continue Fenofibrate Nanocrystallized [Fenofibrate] 0.5 tab PO DAILY Levothyroxine Sodium 25 Mcg [Synthroid 25 Mcg] 25 mcg PO DAILY Ergocalciferol (Vitamin D2) [Vitamin D2] 50,000 unit PO UD Omeprazole 20 MG [Prilosec 20 mg] 20 mg PO DAILY Nifedipine [Adalat cc] 60 mg PO QPM Venlafaxine HCl 37.5 mg [Effexor 37.5 mg] 37.5 mg PO DAILY Metoprolol Succinate 25 mg PO BID Lovastatin 40 mg PO DAILY Losartan Potassium [Cozaar] 50 mg PO QPM Potassium Chloride 10 Meq Tab* [Klor Con 10 MEQ] 20 meq PO DAILY Aspirin 81 mg PO HS Allopurinol 100 mg [Zyloprim 100 mg] 100 mg PO DAILY Liraglutide [Victoza 2-Bernabe] 1.8 mg SQ DAILY Glycopyrrolate 1 mg PO BID Biotin/Keratin [Biotin Plus Keratin Tablet] 1 each PO DAILY Paricalcitol 1 tab PO UD Tramadol HCl 100 mg PO Q8H PRN PRN PRN Reason: Moderate To Severe Pain Additional Instructions: Return to ER if fever, nausea, or vomiting or not able to keep fluids down. Follow up with: SABRINA HARMON [Primary Care Provider] - 1 Week
[2018-10-11] MEDS: ZYLOPRIM 100 MG PO SCH (09:29)
[2018-10-11] MEDS: ZOCOR 20MG PO SCH (09:29)
[2018-10-11] MEDS: EFFEXOR 37.5 MG PO SCH (09:29)
[2018-10-11] MEDS: ENOXAPARIN SODIUM SQ SCH (09:29)
[2018-10-11] MEDS: Klor Con 10 MEQ PO SCH (09:29)
[2018-10-11] MEDS: SYNTHROID 25 MCG PO SCH (09:29)
[2018-10-11] MEDS: Protonix 40MG Tablet PO SCH (09:29)
[2018-10-11] MEDS: Toprol-Xl 25MG Tablets PO SCH (09:30)
[2018-10-11] MEDS: ULTRAM 50 MG PO PRN (09:35)
[2018-10-11 09:40] LABS: BAND 1 % (0.0-2.0); Lymphocytes 5 % (24-44); Monocyte 2 % (0.0-12.0); Neutrophils 92 % (36.0-66.0); Platelet Estimate NORMAL (NORMAL); Total Cells Counted 100; Toxic Granulation 1+
[2018-10-11 10:57] VITALS: PULSE 96; O2SAT 97
[2018-10-11 11:20] VITALS: BP 124/65
--- NOTE | 2018-10-11 12:43 | DS ---
DISCHARGE DIAGNOSES: 1) ACUTE CHOLECYSTITIS. 2) CLOSTRIDIUM DIFFICILE COLITIS. 3) RENAL INSUFFICIENCY. DISCHARGE PHYSICAL EXAMINATION: VITALS: Temperature current 98.5F, temperature max 98.5F, heart rate 90, respiratory rate 20, blood pressure 101/40. Oxygen saturation 93% on room air. GENERAL: The patient is pleasant talkative lady sitting up in bed eating a regular diet in no acute distress. CVS: She has a regular rate and rhythm. No murmurs, gallops or rubs. CHEST: Clear to auscultation bilaterally. No crackles or wheezes. ABDOMEN: Normal bowel sounds. Soft, nontender, nondistended with normal bowel sounds. EXTREMITIES: No clubbing, cyanosis or edema. SKIN: Warm, dry and intact. HOSPITAL COURSE: 1) ACUTE CHOLECYSTITIS: She was found to have on her CT scan abnormally distended gallbladder with subcentimeter stone in the neck and also wall thickening and stranding favoring acute cholecystitis. The patient was started on ceftriaxone and then Zosyn. I discussed with the patient today that I would recommend that the general surgeon see her while she was in the hospital to discuss having the gallbladder taken out but she declined the consult and wants to follow up with her primary care doctor, Dr. Figueredo as an outpatient. The patient is not having any pain. She is eating well and has been afebrile. She will finish out four more days of Augmentin 1 tablet p.o. b.i.d. She had been on Zosyn and ceftriaxone here in the hospital. Her white blood cell count is trending down and was 12,000 at the time of discharge. 2) CLOSTRIDIUM DIFFICILE COLITIS: The patient reports two watery stools. She is able to take oral intake without any problem. No nausea or vomiting. She was started metronidazole last night and will continue metronidazole 500 mg p.o. four times a day for seven more days and have her follow up with her primary care doctor. 3) RENAL INSUFFICIENCY: Her creatinine at the time of discharge was normal at 0.93. DISPOSITION: The patient was discharged to home in fair condition to follow up with her primary care doctor. She is to return to the emergency room if any fever, worsening abdominal pain or any other problems.
== END 2018-10-11 13:30 | disposition home or self-care (01) | DRG 445 ==
LOC: ED 19:18 → MED SURG 10-08 00:20 → OBSVTOIN 10-08 08:46
PROVIDERS: ADMIT Family Medicine; ATTEND Family Medicine
DX: K81.0 Acute cholecystitis (principal); N39.0 Urinary tract infection, site not specified; A04.72 Enterocolitis due to Clostridium difficile, not specified as recurrent; N28.9 Disorder of kidney and ureter, unspecified; I10 Essential (primary) hypertension; E11.9 Type 2 diabetes mellitus without complications; E03.9 Hypothyroidism, unspecified; R42 Dizziness and giddiness; Z79.899 Other long term (current) drug therapy
CPT/HCPCS: 36000; 36415; 71045; 74176; 80048; 80053; 81001; 82150; 82962; 83605; 83690; 85025; 87086; 87493; 87507; 94150; 94640; 94760; 96360; 96361; 96365; 99285; J0696; J1650; J2543; J7609; A9270-GY

== ENCOUNTER 2018-11-11 09:29 | Day surgery (SDC) | payer MEDICARE, OTHER ==
--- NOTE | 2018-11-11 08:00 | HP ---
DATE OF SURGERY: 11/11/2018 ANTICIPATED PROCEDURE: Cholecystectomy. HISTORY OF PRESENT ILLNESS: A patient with upper abdominal pain. Ultrasound revealing stones, seen and examined. Procedure discussed in detail and wished to proceed. PAST MEDICAL HISTORY: ALLERGIES: NONE. MEDICATIONS: None. PAST SURGICAL HISTORY: Knee replacement. SOCIAL HISTORY: Negative. FAMILY HISTORY: Negative. REVIEW OF SYSTEMS: Negative. PHYSICAL EXAMINATION: VITAL SIGNS: Normal. CHEST: Clear. COR: Regular. ABDOMEN: Satisfactory. IMPRESSION: Symptomatic cholelithiasis. PLAN: Laparoscopic cholecystectomy.
[~2018-11-11 09:29] MED LIST: Lactated Ringers 1,000 ML IV ONE; Sensorcaine 0.25% 10 ML ONE
[2018-11-11] MEDS ORDERED: MEFOXIN 2 GM PREMIX** 2 GM/50 ML ML IV ONE (09:47)
[2018-11-11] MEDS ORDERED: Lactated Ringers 1,000 ML IV ONE (09:47)
[2018-11-11] MEDS ORDERED: MEFOXIN 2 GM PREMIX** 2 GM/50 ML ML IV SCH (10:00)
[2018-11-11] MEDS ORDERED: Lactated Ringers 1,000 ML IV SCH (10:00)
[2018-11-11] MEDS ORDERED: Zemuron 100 MG/10 ML ONE (11:51)
[2018-11-11] MEDS ORDERED: DIPRIVAN 200 MG/20 ML IV ONE (11:51)
[2018-11-11] MEDS ORDERED: Versed 2 MG/2 ML Injection ONE (11:51)
[2018-11-11] MEDS ORDERED: SUBLIMAZE 250 MCG/5 ML ONE (11:51)
[2018-11-11] MEDS ORDERED: BRIDION 200MG/2ML IV ONE (12:46)
[2018-11-11] MEDS ORDERED: SUBLIMAZE 100 MCG/2 ML ONE (14:46)
--- NOTE | 2018-11-11 15:36 | OP ---
SURGERY DATE/TIME: 11/11/2018 1221 PREOPERATIVE DIAGNOSIS: Symptomatic cholelithiasis. POSTOPERATIVE DIAGNOSIS: Symptomatic cholelithiasis. PROCEDURE: Laparoscopic cholecystectomy, difficult. SURGEON: Dr. Simons. ANESTHESIA: General by Jerry Watkins CRNA. DRAINS: One. COMPLICATIONS: None. CONDITION: Stable. INDICATIONS: A patient with chronic cholecystitis, cholelithiasis. DESCRIPTION OF PROCEDURE AND FINDINGS: Taken to surgery. General anesthetic, routine prep and drape. Veress needle inserted. Opening pressure of 1, insufflating pressure 14. Four - 5's. Good visualization. The gallbladder was fairly large, fairly thick-walled and a fair number of adhesions. The adhesions taken down. It was necessary to lift the infundibulum up and dissect behind the posterior medial aspect of infundibulum to get an edge. Edge was obtained here. The cystic duct was dissected out. It was taken with three clips medial and one lateral. Gallbladder was totally stuck in, very concrete in nature. With care and patience the cystic artery was triply clipped. The gallbladder basically had to be scraped out of the liver bed all the way up. Operative time was five times normal. Hemostasis was satisfactory once Surgicel was used. A 10 JULIANN was placed. There had been no bile seen during the entire case. The drain secured. Hole closure device was used at the upper epigastric port. Gallbladder then removed. CO2 was exsufflated. Skin closed with aaliyah. Sterile dressing applied. The patient tolerated the procedure satisfactorily.
[2018-11-11 17:14] VITALS: PULSE 18
[2018-11-11 17:42] VITALS: BP 132/72; O2SAT 95
== END 2018-11-11 16:55 | disposition home or self-care (01) ==
LOC: SDC 09:29
PROVIDERS: ATTEND Surgery
DX: K80.10 Calculus of gallbladder with chronic cholecystitis without obstruction (principal); I10 Essential (primary) hypertension; E11.22 Type 2 diabetes mellitus with diabetic chronic kidney disease; I12.9 Hypertensive chronic kidney disease with stage 1 through stage 4 chronic kidney disease, or unspecified chronic kidney disease; N18.4 Chronic kidney disease, stage 4 (severe)
CPT/HCPCS: 82962; 88304; 99100; J0694; J2250; J2704; J3010

== ENCOUNTER 2018-12-09 07:48 | Day surgery (SDC) | payer MEDICARE, OTHER ==
--- NOTE | 2018-12-09 07:45 | HP ---
DATE OF SURGERY: 12/09/2018 ANTICIPATED PROCEDURE: Colonoscopy. HISTORY OF PRESENT ILLNESS: The patient presents for colonoscopy. She was recalled here in September for follow up. She had polyps three years previously. She presents for colonoscopy. PAST MEDICAL HISTORY: ALLERGIES: NKDA. MEDICATIONS: See list. PAST SURGICAL HISTORY: Right knee. Right hip. SOCIAL HISTORY: Negative. FAMILY HISTORY: Negative. REVIEW OF SYSTEMS: CVS: Negative. PULMONARY: Negative. GI: Negative. PHYSICAL EXAMINATION: VITAL SIGNS: Normal. CHEST: Clear. COR: Regular. ABDOMEN: Satisfactory. IMPRESSION: Three year follow up of polyps. PLAN: Colonoscopy.
[2018-12-09] MEDS ORDERED: Lactated Ringers 1,000 ML IV SCH (08:30)
[2018-12-09] MEDS ORDERED: Lactated Ringers 1,000 ML IV ONE (10:34)
[2018-12-09] MEDS ORDERED: KEFZOL 1 GM ONE (10:41)
[2018-12-09] MEDS ORDERED: DIPRIVAN 200 MG/20 ML IV ONE (10:47)
--- NOTE | 2018-12-09 11:47 | OP ---
SURGERY DATE/TIME: 12/09/2018 1059 PREOPERATIVE DIAGNOSIS: Follow up polyps. POSTOPERATIVE DIAGNOSES: 1) One polyp 8 mm in the cecum. 2) Moderate internal hemorrhoids. PROCEDURE: Colonoscopy complete to cecum with hot polypectomy x1. SURGEON: Chetan Simons M.D. DIGITAL EDITOR: Albert Sauceda ANESTHESIA: MAC. COMPLICATIONS: None. CONDITION: Stable. INDICATION: A patient requiring evaluation. DESCRIPTION OF PROCEDURE: Taken to endoscopy. MAC sedation provided. Scope introduced. Scope advanced to the cecum. Base of cecum, ileocecal valve was normal. There was an 8 mm polyp just above the valve taken with hot biopsy forceps to extinction. On circumferential withdraw, no mucosal lesions noted. Bowel prep was excellent. Withdraw time was 6 minutes. The anastomosis 4 cm above the anus was normal. There was moderate internal hemorrhoids. The patient tolerated the procedure satisfactorily.
[2018-12-09 12:07] VITALS: O2SAT 99
[2018-12-09 12:14] VITALS: BP 108/61; PULSE 80
== END 2018-12-09 12:15 | disposition home or self-care (01) ==
LOC: SDC 07:48
PROVIDERS: ATTEND Surgery
DX: Z09 Encounter for follow-up examination after completed treatment for conditions other than malignant neoplasm (principal); Z86.010 Personal history of colon polyps; D12.0 Benign neoplasm of cecum; K64.8 Other hemorrhoids; E11.9 Type 2 diabetes mellitus without complications; I10 Essential (primary) hypertension; J44.9 Chronic obstructive pulmonary disease, unspecified; E03.9 Hypothyroidism, unspecified; Z79.899 Other long term (current) drug therapy
CPT/HCPCS: 82962; 88305; 99100; J0690; J2704

== ENCOUNTER 2021-10-02 06:01 | Day surgery (SDC) | payer MEDICARE, OTHER ==
[~2021-10-02 06:01] MED LIST changes: -Lactated Ringers 1,000 ML IV ONE; +Lactated Ringers 1,000 ML IV SCH; -Sensorcaine 0.25% 10 ML ONE
[2021-10-02] MEDS ORDERED: DIPRIVAN 200 MG/20 ML IV ONE (08:05)
[2021-10-02] MEDS ORDERED: KEFZOL 1 GM ONE ×2 (08:07)
[2021-10-02 09:18] VITALS: BP 141/74; PULSE 77; O2SAT 96
--- NOTE | 2021-10-02 11:14 | OP ---
SURGERY DATE: 10/02/2021 SURGERY TIME: 804 PREOPERATIVE DIAGNOSIS: 1. CHANGE IN BOWEL HABITS. POSTOPERATIVE DIAGNOSIS: 1. NORMAL COLON. PROCEDURE: 1. Diagnostic colonoscopy. SURGEON: Dr. Nicolas Macias. ANESTHESIA: MAC by Jerry Watkins CRNA. SPECIMENS: None. ESTIMATED BLOOD LOSS: None. DESCRIPTION OF PROCEDURE: After informed written consent was obtained, the patient was taken to the endoscopy suite. She was placed in the left lateral decubitus position and then anesthesia was titrated to the desired level of consciousness. Digital rectal exam showed normal sphincter tone with external hemorrhoids, no internal lesions. The scope was inserted in the rectum and sequentially the entire colonic mucosa was traversed. The level of the cecum was reached and verified with direct visualization of the ileocecal valve. Upon withdrawal, careful mucosal inspection revealed no significant gross abnormalities. Prior to withdrawal, retroflexion showed no internal lesions. The scope was removed and the patient was transferred to the recovery room in good condition.
== END 2021-10-02 09:20 | disposition home or self-care (01) ==
LOC: SDC 06:01
PROVIDERS: ATTEND Family Medicine
DX: R19.4 Change in bowel habit (principal); K64.4 Residual hemorrhoidal skin tags; E11.9 Type 2 diabetes mellitus without complications
CPT/HCPCS: 82947; 99100; J0690; J2704